=== PATIENT | female | born 1985 | race Caucasian/White ===

== ENCOUNTER 2021-04-19 16:58 | Outpatient (CLI) | payer OTHER | END 2021-04-19 17:05 | disposition home or self-care (01) | LOC: LAB 16:58 | DX: Z03.818 Encounter for observation for suspected exposure to other biological agents ruled out (principal) ==

== ENCOUNTER 2021-07-03 08:00 | Outpatient (CLI) | payer OTHER | END 2021-07-03 08:30 | disposition home or self-care (01) | LOC: PPH VACUNA 08:00 | PROVIDERS: ATTEND Emergency Medicine Pediatric Emergency Medicine | DX: Z23 Encounter for immunization (principal) ==

== ENCOUNTER 2022-02-04 10:36 | Emergency (ER) | payer OTHER ==
[~2022-02-04] VITALS: Ht 157.5 cm; Wt 90.7 kg
[2022-02-04] MEDS ORDERED: COZAAR25 MG (10:46)
== END 2022-02-04 17:42 | disposition home or self-care (01) ==
LOC: ER 10:36
DX: R51.9 Headache, unspecified (principal); R55 Syncope and collapse; N39.0 Urinary tract infection, site not specified